=== PATIENT | female | born 1945 | race Caucasian/White ===

== ENCOUNTER → 2019-08-22 | Outpatient (CLI) | payer MEDICARE, OTHER | LOC: M LABSMTC 10:54 | PROVIDERS: ATTEND Family Medicine | DX: Z11.59 Encounter for screening for other viral diseases (principal) | CPT/HCPCS: C9803; U0003 ==

== ENCOUNTER → 2021-08-26 | Outpatient (CLI) | payer MEDICARE, OTHER ==
[~2021-08-26] MED LIST: LEVO25TA5; LOSA100T45; LOSA25TA13; VENL37.598; VENL75CA47
== END ==
LOC: M LABSMTC 11:25
PROVIDERS: ATTEND Anesthesiology
DX: Z11.52 Encounter for screening for COVID-19 (principal)

== ENCOUNTER 2021-08-31 07:56 | Day surgery (SDC) | payer MEDICARE, OTHER ==
[~2021-08-31] VITALS: Ht 160 cm; Wt 59.3 kg
[~2021-08-31 07:56] MED LIST changes: +CYCLOPENTOLATE 1% OPHTH SOLN 2 ML BTL OS SCH; +FLURBIPROFEN 0.03% OPHTH SOLN 2.5 ML OS SCH; +LIDOCAINE 1% SDV 5ML VIAL As Ordered ONE; +LR 1,000 ML IV SCH; +PHENYLEPHRINE 2.5% OPHTH SOL 2ML OS SCH; +TETRACAINE 0.5% OPHTH SOLN 4ML OS SCH
[2021-08-31] MEDS ORDERED: MIDAZOLAM INJ 2MG/2ML VIAL (J2250 PER 1MG) As Ordered ONE (09:45)
[2021-08-31 10:42] VITALS: BP 171/84
== END 2021-08-31 10:44 | disposition home or self-care (01) ==
LOC: M SDC 07:56
PROVIDERS: ATTEND Ophthalmology
DX: H25.12 Age-related nuclear cataract, left eye (principal); I71.4 Abdominal aortic aneurysm, without rupture; E03.9 Hypothyroidism, unspecified; K57.92 Diverticulitis of intestine, part unspecified, without perforation or abscess without bleeding; F32.A Depression, unspecified; Z79.899 Other long term (current) drug therapy; Z88.2 Allergy status to sulfonamides
CPT/HCPCS: 66984; J2250; V2788

== ENCOUNTER → 2021-09-23 | Outpatient (CLI) | payer MEDICARE, OTHER ==
[~2021-09-23] MED LIST changes: +ALEV220T22 PO; +BAYE81TA10 PO; +CALCTAB54 PO; -CYCLOPENTOLATE 1% OPHTH SOLN 2 ML BTL OS SCH; -FLURBIPROFEN 0.03% OPHTH SOLN 2.5 ML OS SCH; +LATA0.0015 OU; -LEVO25TA5; +LEVO25TA5 PO; -LIDOCAINE 1% SDV 5ML VIAL As Ordered ONE; -LOSA100T45; +LOSA100T45 PO; -LOSA25TA13; +LOSA25TA13 PO; -LR 1,000 ML IV SCH; +METO1TAB7 PO; -PHENYLEPHRINE 2.5% OPHTH SOL 2ML OS SCH; -TETRACAINE 0.5% OPHTH SOLN 4ML OS SCH; -VENL37.598; +VENL37.598 PO; -VENL75CA47; +VENL75CA47 PO; +prevagen PO
== END ==
LOC: M LABSMTC 11:33
PROVIDERS: ATTEND Anesthesiology
DX: Z11.52 Encounter for screening for COVID-19 (principal)

== ENCOUNTER 2021-09-28 13:39 | Day surgery (SDC) | payer MEDICARE, OTHER ==
[~2021-09-28] VITALS: Ht 160 cm; Wt 58.4 kg
[~2021-09-28 13:39] MED LIST changes: +LIDOCAINE 1% SDV 5ML VIAL As Ordered ONE; +LR 1,000 ML IV SCH; +MIDAZOLAM INJ 2MG/2ML VIAL (J2250 PER 1MG) As Ordered ONE; +TETRACAINE 0.5% OPHTH SOLN 4ML OD SCH
[2021-09-28] MEDS ORDERED: MULT-90 PO (14:10)
[2021-09-28] MEDS ORDERED: VITA100T59 PO (14:10)
[2021-09-28] MEDS: FLURBIPROFEN 0.03% OPHTH SOLN 2.5 ML OD SCH ×3 (14:12→14:27)
[2021-09-28] MEDS: CYCLOPENTOLATE 1% OPHTH SOLN 2 ML BTL OD SCH ×3 (14:12→14:27)
[2021-09-28] MEDS: PHENYLEPHRINE 2.5% OPHTH SOL 2ML OD SCH ×3 (14:12→14:27)
[2021-09-28 15:36] VITALS: BP 149/74
== END 2021-09-28 15:59 | disposition home or self-care (01) ==
LOC: M SDC 13:39
PROVIDERS: ATTEND Ophthalmology
DX: H25.11 Age-related nuclear cataract, right eye (principal); I11.9 Hypertensive heart disease without heart failure; K57.92 Diverticulitis of intestine, part unspecified, without perforation or abscess without bleeding; K21.9 Gastro-esophageal reflux disease without esophagitis; E78.00 Pure hypercholesterolemia, unspecified; E03.9 Hypothyroidism, unspecified; Z92.3 Personal history of irradiation; M81.0 Age-related osteoporosis without current pathological fracture; C95.90 Leukemia, unspecified not having achieved remission; D75.89 Other specified diseases of blood and blood-forming organs; E55.9 Vitamin D deficiency, unspecified; M19.29 Secondary osteoarthritis, other specified site; Z85.3 Personal history of malignant neoplasm of breast; Z96.649 Presence of unspecified artificial hip joint; Z79.899 Other long term (current) drug therapy; Z79.890 Hormone replacement therapy
CPT/HCPCS: 66984; J2250; V2788

== ENCOUNTER → 2022-08-18 | Outpatient (CLI) | payer MEDICARE, OTHER ==
[~2022-08-18] MED LIST changes: -LIDOCAINE 1% SDV 5ML VIAL As Ordered ONE; -LOSA100T45 PO; +LOSA100T46 PO; -LR 1,000 ML IV SCH; -MIDAZOLAM INJ 2MG/2ML VIAL (J2250 PER 1MG) As Ordered ONE; +MULT-90 PO; -TETRACAINE 0.5% OPHTH SOLN 4ML OD SCH; +VITA100T59 PO
== END ==
LOC: M WUC 14:24
PROVIDERS: ATTEND Nurse Practitioner Family
DX: R26.89 Other abnormalities of gait and mobility (principal)